=== PATIENT | female | born 1955 | race Caucasian/White ===

== ENCOUNTER 2018-09-19 11:13 | Emergency (ER) | payer OTHER, MEDICAID ==
[2018-09-19] MEDS ORDERED: IBUPROFEN 600 MG TAB PO ONE (12:28)
[2018-09-19] MEDS ORDERED: ACETAMINOPHEN 500 MG TAB PO ONE (12:28)
[2018-09-19] MEDS ORDERED: LIDOCAINE 4%/MENTHOL 1% PATCH TD ONE (12:28)
--- NOTE | 2018-09-19 12:31 | EDPHY ---
H & P Time Seen by Provider: 09/19/18 11:29 HPI/ROS: CHIEF COMPLAINT: Fall with rib pain HISTORY OF PRESENT ILLNESS: 63-year-old female presents emergency department reporting that 2 days ago she slipped while stepping into a bathtub and fell, striking her left lateral chest wall on the edge of the bathtub. No other trauma. No head injury. No loss consciousness. Reports moderate pain in the area with increased pain with breathing. No significant cough. No fevers or chills. No abdominal pain. No urinary complaints. REVIEW OF SYSTEMS: A comprehensive 10 system review of systems was reviewed and is otherwise negative aside from elements mentioned in the history of present illness and medical decision making. PAST MEDICAL HISTORY: COPD, Graves disease SOCIAL HISTORY: Heavy smoker, . VITAL SIGNS: Reviewed by me; see NN. O2 sat 91% on room air. GENERAL: Pleasant female, uncomfortable when taking a deep breath. HEENT: Head: Atraumatic, normocephalic. Face: Atraumatic. PERRL, EOMI, no nystagmus. Oropharynx: Dry lips, No trauma, normal occlusion. Neck: Nontender to palpation, no pain with range of motion, no adenopathy. CHEST: Focal tenderness along the lateral chest wall, just underneath the left breast. No rash, no crepitus, no deformities. LUNGS: Coarse breath sounds throughout, no wheezes. Equal bilaterally. CARDIAC: Regular rate and rhythm, no rubs, murmurs or gallops. ABDOMEN: Soft, no left upper quadrant epigastric tenderness. Nondistended, bowel sounds normal. BACK: No CVA tenderness, no spinal tenderness. EXTREMITIES: No trauma noted, normal range of motion. PULSES: 2+ and equal throughout. NEURO: Alert and oriented x3, cranial nerves are intact throughout, normal motor , normal sensation. SKIN: Warm and dry, no rash. Smoking Status: Heavy smoker Constitutional: Initial Vital Signs Temperature (C) 36.7 C 09/19/18 11:20 Heart Rate 92 09/19/18 11:20 Respiratory Rate 16 09/19/18 11:20 Blood Pressure 106/71 09/19/18 11:20 O2 Sat (%) 91 L 09/19/18 11:20 O2 Delivery Mode Room Air Allergies/Adverse Reactions: iodine [Iodine] Allergy (Verified 09/19/18 11:19) Home Medications: Medication Instructions Recorded Albuterol [Proventil Inhaler (RX)] 1 - 2 puffs IH Q6 PRN 11/13/11 Ibuprofen [Advil] 800 mg PO DAILY PRN 11/13/11 Levothyroxine [Synthroid 100 mcg 100 mcg PO DAILY06 11/13/11 (RX)] Hydrocodone/APAP 5/325 [Alexander 1 tab PO Q6H PRN #10 tab 09/19/18 5/325 (RX)] Medical Decision Making - Diagnostics Imaging Results: Xray: Chest x-ray and rib series was obtained. I viewed the images myself on the PACS system. My interpretation of the images is: No pneumothorax, no rib fractures. The radiology interpretation is: Pending. I discussed the results with the patient. Imaging: I viewed and interpreted images myself ED Course/Re-evaluation: 63-year-old female presents following a fall and injury to her left chest wall. This occurred 2 days ago. X-rays demonstrate no fracture or pneumothorax. O2 sat is 91% on room air. Urinalysis with no blood. No abdominal tenderness. Discharged with instructions regarding incentive spirometer. Pain meds prescribed. Lidocaine patch administered. Differential Diagnosis: Differential diagnosis of this patient's fall was considered including but not limited to rib fracture, rib contusion, pneumothorax, hemothorax, abrasion, laceration. - Data Points Medications Given: Discontinued Medications Acetaminophen (Tylenol) 1,000 mg PO EDNOW ONE Stop: 09/19/18 12:29 Last Admin: 09/19/18 12:34 Dose: 1,000 mg Ibuprofen (Motrin) 600 mg PO EDNOW ONE Stop: 09/19/18 12:29 Last Admin: 09/19/18 12:34 Dose: 600 mg Miscellaneous Medication (Icy Hot Lidocaine/Menthol 4%/1% Patch) 1 patch TD EDNOW ONE Stop: 09/19/18 12:29 Last Admin: 09/19/18 12:34 Dose: 1 patch Departure - Departure Disposition: Home, Routine, Self-Care Clinical Impression: Contusion of rib on left side Qualifiers: Encounter type: initial encounter Qualified Code(s): S20.212A - Contusion of left front wall of thorax, initial encounter Condition: Good Instructions: How to Use an Incentive Spirometer (ED), Rib Contusion (ED) Additional Instructions: Your x-ray does not demonstrate any fracture. For pain I recommend ibuprofen 400-600 mg every 8 hr with food. You may also use high-dose Tylenol, 650-1000 mg every 4-6 hours. Do not exceed 3000 mg in a 24 hr period. You may use lidocaine patches as needed for local pain control You been given a prescription for hydrocodone. This does contain Tylenol. Do not be using the hydrocodone along with the [id number] Tylenol Follow up with her primary care physician if you're not improving as expected over the next several days. Please use an incentive spirometer to encourage deep, frequent breathing and prevent the development of pneumonia. Referrals: NONE *PRIMARY CARE P,. [Primary Care Provider] - As per Instructions Prescriptions: Hydrocodone/APAP 5/325 [Alexander 5/325 (RX)] 1 tab PO Q6H PRN #10 tab PRN Reason: Pain
[2018-09-19 13:17] VITALS: BP 122/75
[2018-09-19] MEDS ORDERED: PATCH REMOVAL 1 EA PATCH TD SCH (21:00)
== END 2018-09-19 13:17 | disposition home or self-care (01) ==
DX: S20.212A Contusion of left front wall of thorax, initial encounter (principal); W18.2XXA Fall in (into) shower or empty bathtub, initial encounter; Y92.002 Bathroom of unspecified non-institutional (private) residence as the place of occurrence of the external cause